=== PATIENT | female | born 1950 | race African-American/Black ===

== ENCOUNTER 2017-10-26 10:26 | Day surgery (SDC) | payer OTHER ==
[2017-10-25 19:51] VITALS: BMI 34.9
[~2017-10-26 10:26] MED LIST: LIDOCAINE HCL 1%, 10 MG/ML (20ML VIAL) INF ONE
[2017-10-26] MEDS ORDERED: LIDOCAINE HCL 1%, 10 MG/ML (20ML VIAL) ONE (11:30)
[2017-10-26] MEDS ORDERED: LACTATED RINGERS SOLUTION 1,000 ML IV SCH (11:30)
[2017-10-26] MEDS ORDERED: oxyCODONE HCL 5 MG TABLET PO PRN (11:30)
[2017-10-26] MEDS ORDERED: ONDANSETRON 4 MG/2 ML VIAL IVPUSH PRN (11:30)
[2017-10-26] MEDS ORDERED: MIDAZOLAM HCL 2 MG/2 ML SINGLE DOSE VIAL ONE ×2 (12:14)
[2017-10-26] MEDS ORDERED: ceFAZolin SODIUM 1 GM VIAL ONE (12:14)
[2017-10-26] MEDS ORDERED: PROPOFOL 20 ML ONE (12:14)
[2017-10-26] MEDS ORDERED: LIDOCAINE HCL 1%, 10 MG/ML (20ML VIAL) INF ONE ×2 (12:32→12:48)
[2017-10-26] MEDS ORDERED: ceFAZolin SODIUM 1 GM VIAL IVPB ONE (12:42)
--- NOTE | 2017-10-26 14:26 | HP ---
Admitting History and Physical - Admission Chief Complaint: right toe ulcer. - Smoking History Smoking history: Former smoker Have you smoked in the past 12 months: No If you are a former smoker, when did you quit?: 12 years ago - Alcohol/Substance Use Hx Alcohol Use: No Home Medications - Allergies Allergies/Adverse Reactions: Allergies Allergy/AdvReac Type Severity Reaction Status Date / Time Sulfa (Sulfonamide Allergy Hives Verified 10/26/17 11:43 Antibiotics) - Home Medications Home Medications: Ambulatory Orders Albuterol Sulfate [Proair Respiclick] 90 mcg IH Q4H PRN 10/25/17 Alirocumab [Praluent Pen] 75 mg SQ ASDIR 10/25/17 Aspirin [ASA -] 81 mg PO DAILY 10/25/17 Diclofenac Sodium [Voltaren] 100 gm TP ASDIR 10/25/17 Ergocalciferol (Vitamin D2) [Vitamin D2] 50,000 unit PO WEEKLY 10/25/17 Famotidine [Pepcid] 40 mg PO DAILY 10/25/17 Furosemide [Lasix] 20 mg PO DAILY 10/25/17 Gabapentin 600 mg PO QID 10/25/17 Hydralazine HCl 100 mg PO BID 10/25/17 Icosapent Ethyl [Vascepa] 1.9 mg PO BID 10/25/17 Losartan Potassium [Cozaar] 100 mg PO DAILY 10/25/17 Lubiprostone [Amitiza] 20 mcg PO BID 10/25/17 Metolazone 8 mg PO DAILY 10/25/17 Metoprolol Tartrate [Lopressor] 100 mg PO BID 10/25/17 Oxycodone HCl 10 mg PO Q8H PRN 10/25/17 Paroxetine HCl [Paxil] 80 mg PO DAILY 10/25/17 Potassium Chloride 10 meq PO DAILY 10/25/17 Duloxetine HCl [Cymbalta] 80 mg PO DAILY 10/26/17 Review of Systems - Review of Systems Constitutional: reports: No Symptoms Eyes: reports: No Symptoms HENT: reports: No Symptoms Neck: reports: No Symptoms Cardiovascular: reports: No Symptoms Respiratory: reports: No Symptoms Gastrointestinal: reports: No Symptoms Genitourinary: reports: No Symptoms Musculoskeletal: reports: No Symptoms Integumentary: reports: No Symptoms Neurological: reports: No Symptoms Endocrine: reports: No Symptoms Physical Examination Vital Signs: Vital Signs Temperature 97.6 F 10/26/17 13:35 Pulse Rate 67 10/26/17 14:20 Respiratory Rate 18 10/26/17 14:20 Blood Pressure 171/87 10/26/17 14:20 O2 Sat by Pulse Oximetry (%) 98 10/26/17 14:20 Constitutional: Yes: Well Nourished Eyes: Yes: WNL HENT: Yes: WNL Neck: Yes: WNL Cardiovascular: Yes: WNL Respiratory: Yes: WNL Gastrointestinal: Yes: WNL ...Rectal Exam: Yes: WNL Renal/: Yes: WNL Breast(s): Yes: WNL Musculoskeletal: Yes: WNL Extremities: Yes: WNL Edema: Yes Peripheral Pulses WNL: Yes Integumentary: Yes: WNL Problem List - Problems (1) Ulcer of foot due to diabetes Code(s): E11.621 - TYPE 2 DIABETES MELLITUS WITH FOOT ULCER; L97.509 - NON- PRESSURE CHRONIC ULCER OTH PRT UNSP FOOT W UNSP SEVERITY (2) Diabetes Code(s): E11.9 - TYPE 2 DIABETES MELLITUS WITHOUT COMPLICATIONS Assessment/Plan Right foot ulcer. 1. For angiogram today
--- NOTE | 2017-10-26 14:27 | OP ---
Operative Note - Note: Operative Date: 10/26/17 Pre-Operative Diagnosis: right second toe ulcer Operation: Aortogram, RLE angiogram, popliteal artery atherectomy, with DCB angioplasty Post-Operative Diagnosis: Same as Pre-op Surgeon: Wali Marin Anesthesia: Fractional Estimated Blood Loss (mls): 30 Operative Report Dictated: Yes
[2017-10-26] MEDS ORDERED: CLOPIDOGREL BISULFATE 75 MG TABLET (FP) PO ONE (14:28)
[2017-10-26 14:35] VITALS: TEMP 97.9
[2017-10-26 16:04] VITALS: BP 146/62; PULSE 58
--- NOTE | 2017-10-27 12:35 | OP ---
DATE OF OPERATION: 10/26/2017 PREOPERATIVE DIAGNOSIS: Right 2nd toe ulcer. POSTOPERATIVE DIAGNOSIS: Right 2nd toe ulcer. PROCEDURE: Aortogram, right lower extremity angiogram, popliteal artery atherectomy with drug-coated balloon angioplasty. SURGEON: Wali Tran DO ANESTHESIA: Fractional. BLOOD LOSS: 30 mL INDICATION FOR PROCEDURE: The patient is a 67-year-old female who comes in with a right 2nd toe ulcer. She was seen in the office, and she had an arterial duplex performed showing that she had severe popliteal artery disease. It was decided that she would need an angiogram. She then went to her pickling grader and got cardiology clearance for the case and was then booked as an outpatient. Patient came in through Ambulatory Surgery. Patient was consented for the procedure, understanding all risks, benefits, and alternatives, then taken to the operating room. DESCRIPTION OF PROCEDURE: Once in the operating room, she was laid on the operating table in supine manner. The areas of the left and right groin were prepped and draped in a sterile surgical manner. Then, under ultrasound guidance, we were able to visualize the left common femoral artery, and 10 mL of % was injected there. We then took our micropuncture needle and punctured the left common femoral artery. Micropuncture wire was inserted. Micropuncture sheath was inserted, and then, a traditional 5-[place] sheath was inserted. We then placed a 0.035 floppy guidewire up into the aorta, followed by a Merit catheter. We then shot an aortogram via hand injection, showing that the aorta and the iliac arteries were without any disease. We then placed our 0.035 floppy guidewire up and over to the right common femoral artery, and our Merit catheter followed. We then shot an angiogram of the right lower extremity, showing that the common femoral artery, profunda, and the SFA were patent. The distal SFA/proximal popliteal artery had severe disease of about 80%, going all the way down to the joint space behind the knee. The artery had severe stenosis and was calcified. The popliteal artery was diseased for probably about 8 cm with multiple lesions, equally 80% to 90%. The patient had 1-vessel runoff into the foot, which was the AT. At this point, we placed a 0.035 stiff guidewire into the SFA and removed our Merit catheter and then placed a 6 x 45 crossover sheath. Next, 5000 units of IV heparin were administered to the patient. We then got our wire down and got it across our popliteal artery stenosis and placed it into the anterior tibial artery. We then exchanged for a ViperWire. We then went ahead and used a CSI orbital atherectomy device and performed orbital atherectomy on low, medium, and high of the popliteal artery. We then went ahead and used a 4 x 8 drug-coated balloon, which was a Lutonix balloon, and performed angioplasty of the popliteal artery. Completion angiogram now showed that the artery was patent. There was no recoil. There was good brisk flow into the foot. At this point, we brought our sheath up and over, and StarClose device was successfully deployed in the left common femoral artery. Pressure was held for 5 minutes. After this, there was no bleeding. Area was wet and dried, and Dermabond was placed. Patient tolerated the procedure with no complications. Patient transferred to the PACU in stable condition. WALI TRAN DO [id number]
== END 2017-10-26 16:31 | disposition home or self-care (01) ==
LOC: JASU-SURG 10:26
PROVIDERS: ATTEND Surgery Vascular Surgery
PROC: 047M3Z1 Dilation of Right Popliteal Artery using Drug-Coated Balloon, Percutaneous Approach (ICD-10-PCS; principal; 2017-10-26 12:00)
DX: I70.235 Atherosclerosis of native arteries of right leg with ulceration of other part of foot (principal)
CPT/HCPCS: 37225; C2623; 76000-TC; 94760